=== PATIENT | female | born 1965 | race Caucasian/White ===

== ENCOUNTER 2019-06-01 15:46 | Emergency (ER) | payer MEDICAID ==
[~2019-06-01] VITALS: Ht 162.6 cm; Wt 61.0 kg
[2019-06-01] MEDS ORDERED: LISI40TA4 PO (15:56)
[2019-06-01] MEDS ORDERED: METO-396 PO (15:56)
[2019-06-01] MEDS ORDERED: FLUO20CA33 PO (15:56)
[2019-06-01] MEDS ORDERED: PROV100 PO (15:56)
[2019-06-01] MEDS ORDERED: ASPI-1393 PO (15:56)
[2019-06-01] MEDS ORDERED: METF-816 PO (15:56)
[2019-06-01] MEDS ORDERED: TERA10CA4 PO (15:56)
[2019-06-01] MEDS ORDERED: AMLO10TA80 PO (15:56)
[2019-06-01] MEDS ORDERED: ATOR10TA69 PO (15:56)
[2019-06-01] MEDS ORDERED: LEVETIRACETAM 500MG PREMIX 100 ML IV ONE (16:30)
[2019-06-01 17:21] LABS: BASOPHILS % 0.9 % (0.0-2.0); EOSINOPHILS % 2.1 % (0.0-5.0); HEMATOCRIT. 37.1 % (36.0-48.0); HEMOGLOBIN. 12.4 g/dL (12.0-16.0); LYMPHOCYTES % 16.5 % (20.0-50.0); MEAN CORPUSCULAR HEMOGLOBIN 28.7 pg (28.0-32.0); MEAN CORPUSCULAR VOLUME 85.4 fL (81.0-99.0); MEAN PLATELET VOLUME 8.4 fl (7.4-10.4); MONOCYTES % 7.1 % (2.0-8.0); NEUTROPHILS % 73.4 % (40.0-76.0); PLATELET 330 x1000/uL (130-400); RED BLOOD CELL COUNT 4.34 mill/uL (4.2-5.4); RED CELL DISTRIBUTION WIDTH 15.5 % (11.6-14.6)
[2019-06-01 17:23] LABS: PARTIAL THROMBOPLASTIN TIME 26.2 sec (23.4-31.0); PROTHROMBIN TIME 10.1 sec (9.6-11.0)
[2019-06-01 17:24] LABS: CHLORIDE 99 mEq/L (98-107)
[2019-06-01 17:41] LABS: CLARITY URINE CLEAR (CLEAR); COLOR URINE YELLOW (YELLOW); KETONES URINE NEGATIVE (NEGATIVE); LEUKOCYTE ESTERASE URINE 1+ (NEGATIVE); NITRITE URINE POSITIVE (NEGATIVE); OCCULT BLOOD URINE NEGATIVE (NEGATIVE); PH URINE 8.5 (4.5-8.0); PROTEIN URINE NEGATIVE (NEGATIVE); SPECIFIC GRAVITY URINE 1.015 (1.005-1.030)
[2019-06-01] MEDS ORDERED: CEFTRIAXONE 1 G PREMIX 50 ML IV ONE (18:00)
[2019-06-01 21:30] VITALS: BP 167/79
== END 2019-06-01 21:51 | disposition short-term general hospital (02) ==
LOC: ER 15:46
DX: N39.0 Urinary tract infection, site not specified (principal); E86.0 Dehydration; I10 Essential (primary) hypertension; E11.9 Type 2 diabetes mellitus without complications; I69.354 Hemiplegia and hemiparesis following cerebral infarction affecting left non-dominant side; Z79.82 Long term (current) use of aspirin; Z79.84 Long term (current) use of oral hypoglycemic drugs
CPT/HCPCS: 36415; 70450; 71045; 80053; 81003; 82962; 83880; 84484; 85025; 85610; 85730; 87077; 87086; 87186; 93005; 96365; 96367; 99285; J0696; J1953

== ENCOUNTER 2019-06-08 22:03 | Inpatient (IN) | payer MEDICAID ==
[~2019-06-08] VITALS: Ht 157.5 cm; Wt 68.6 kg
[~2019-06-08 22:03] MED LIST: AMLO10TA80 PO; ASPI-1393 PO; ATOR10TA69 PO; FLUO20CA33 PO; LISI40TA4 PO; METF-816 PO; METO-396 PO; PROV100 PO; TERA10CA4 PO
[2019-06-08 23:05] LABS: BASOPHILS % 0.7 % (0.0-2.0); EOSINOPHILS % 1.9 % (0.0-5.0); HEMATOCRIT. 30.3 % (36.0-48.0); HEMOGLOBIN. 10.1 g/dL (12.0-16.0); LYMPHOCYTES % 15.2 % (20.0-50.0); MEAN CORPUSCULAR HEMOGLOBIN 28.2 pg (28.0-32.0); MEAN CORPUSCULAR VOLUME 84.5 fL (81.0-99.0); MONOCYTES % 9.1 % (2.0-8.0); NEUTROPHILS % 73.1 % (40.0-76.0); PLATELET 290 x1000/uL (130-400); RED BLOOD CELL COUNT 3.59 mill/uL (4.2-5.4); RED CELL DISTRIBUTION WIDTH 15.3 % (11.6-14.6)
[2019-06-08 23:17] LABS: CHLORIDE 105 mEq/L (98-107)
[2019-06-08 23:19] LABS: *AMPHETAMINES SCREEN URINE NEGATIVE (NEGATIVE); *BARBITURATES SCREEN URINE NEGATIVE (NEGATIVE); *BENZODIAZEPINES SCREEN URINE NEGATIVE (NEGATIVE); CLARITY URINE CLOUDY (CLEAR); COLOR URINE YELLOW (YELLOW); KETONES URINE NEGATIVE (NEGATIVE); LEUKOCYTE ESTERASE URINE 1+ (NEGATIVE); NITRITE URINE NEGATIVE (NEGATIVE); OCCULT BLOOD URINE NEGATIVE (NEGATIVE); PH URINE 8.5 (4.5-8.0); PROTEIN URINE NEGATIVE (NEGATIVE); SPECIFIC GRAVITY URINE 1.015 (1.005-1.030); UROBILINOGEN URINE 0.2 E.U./dL (0.2-1.0)
[2019-06-08 23:20] LABS: *COCAINE SCREEN URINE NEGATIVE (NEGATIVE); CANNABINOID URINE SCREEN NEGATIVE (NEGATIVE); METHADONE URINE SCREEN NEGATIVE (NEGATIVE); OPIATES URINE SCREEN NEGATIVE (NEGATIVE); PHENCYCLIDINE URINE SCREEN NEGATIVE (NEGATIVE)
[2019-06-08 23:20] LABS: ETHANOL BLOOD < 10 mg/dL
[2019-06-08] MEDS ORDERED: CEFTRIAXONE 1 G PREMIX 50 ML IV SCH (23:45)
[2019-06-08] MEDS ORDERED: LEVOTHYROXINE SODIUM 50MCG TABLET PO SCH (23:45)
[2019-06-09] MEDS ORDERED: AMLODIPINE 10MG TABLET PO ONE (00:45)
[2019-06-09] MEDS ORDERED: CEFTRIAXONE 1 G PREMIX 50 ML IV ONE (01:45)
[2019-06-09] MEDS: DEXT 5%/0.45% NACL KCL 20MEQ/L 1,000 ML IV SCH ×2 (02:54→17:55)
[2019-06-09] MEDS ORDERED: CLONIDINE HCL 0.1MG/24HR PATCH TD SCH (03:00)
[2019-06-09] MEDS ORDERED: MORPHINE SULFATE 2 MG/ML CPJ (NOT FOR IM USE) IV PRN (03:15)
[2019-06-09] MEDS ORDERED: LORAZEPAM 2MG/ML CPJ ONE (05:22)
[2019-06-09] MEDS ORDERED: LEVETIRACETAM 500MG PREMIX 100 ML IV ONE (05:30)
[2019-06-09] MEDS ORDERED: LORAZEPAM 2MG/ML CPJ IV ONE (05:30)
[2019-06-09 09:36] VITALS: BP 171/74
[2019-06-09 09:42] VITALS: BP 171/74
[2019-06-09] MEDS ORDERED: METO25TA6 PO (09:54)
[2019-06-09] MEDS ORDERED: MULT-1116 MT (09:54)
[2019-06-09] MEDS ORDERED: METF-415 PO (09:54)
[2019-06-09] MEDS: PANTOPRAZOLE SODIUM 40 MG/VIAL IV SCH (09:55)
[2019-06-09] MEDS: ENALAPRIL 2.5MG/2ML VIAL 2ML IV PRN (09:56)
[2019-06-09] MEDS: ENOXAPARIN 40MG/0.4ML SYR SUBCUT SCH (09:57)
[2019-06-09 11:14] LABS: CHLORIDE 107 mEq/L (98-107)
[2019-06-09 11:21] LABS: LDL CHOLESTEROL 41 mg/dL (5-100)
[2019-06-09 11:23] LABS: HDL CHOLESTEROL 56 mg/dL (40-59)
[2019-06-09] MEDS ORDERED: DEXTROSE 50% WATER 50ML SYRINGE IV PRN ×2 (11:30)
[2019-06-09] MEDS ORDERED: LORAZEPAM 2MG/ML CPJ IV PRN (11:30)
[2019-06-09 12:00] VITALS: BP 169/76
[2019-06-09] MEDS ORDERED: LISINOPRIL 20MG TABLET PEG SCH (12:30)
[2019-06-09] MEDS: INSULIN LISPRO 100 UNITS/ML SUBCUT SCH ×3 (12:40→20:54)
[2019-06-09] MEDS: BLOOD SUGAR DIAGNOSTIC STRIP TEST SCH ×3 (12:54→20:53)
[2019-06-09] MEDS: MICONAZOLE NITRATE 2% OINT 71GM TOP SCH ×2 (15:34→21:20)
[2019-06-09 16:00] VITALS: BP 148/75
[2019-06-09] MEDS ORDERED: INFLUENZA VIRUS VACCINE(AFLURIA) 0.5ML SYR IM ONE (17:15)
[2019-06-09 20:00] VITALS: BP 179/76
[2019-06-09] MEDS ORDERED: ACETAMINOPHEN 325MG TABLET PO PRN (20:15)
[2019-06-09] MEDS: LEVETIRACETAM 500MG TABLET PEG SCH (21:19)
[2019-06-09] MEDS: METOPROLOL TARTRATE 50MG TABLET PEG SCH (21:20)
[2019-06-10] VITALS: BP 160/62
[2019-06-10 04:00] VITALS: BP 171/76
[2019-06-10] MEDS: DEXT 5%/0.45% NACL KCL 20MEQ/L 1,000 ML IV SCH (05:36)
[2019-06-10] MEDS: ENALAPRIL 2.5MG/2ML VIAL 2ML IV PRN (05:38)
[2019-06-10] MEDS: INSULIN LISPRO 100 UNITS/ML SUBCUT SCH ×4 (05:59→21:00)
[2019-06-10] MEDS: BLOOD SUGAR DIAGNOSTIC STRIP TEST SCH ×4 (05:59→21:12)
[2019-06-10 06:44] LABS: BASOPHILS % 0.8 % (0.0-2.0); HEMATOCRIT. 31.1 % (36.0-48.0); HEMOGLOBIN. 10.4 g/dL (12.0-16.0); MEAN CORPUSCULAR HEMOGLOBIN 28.5 pg (28.0-32.0); MEAN CORPUSCULAR VOLUME 84.7 fL (81.0-99.0); MEAN PLATELET VOLUME 8.1 fl (7.4-10.4); MONOCYTES % 9.9 % (2.0-8.0); NEUTROPHILS % 63.3 % (40.0-76.0); PLATELET 298 x1000/uL (130-400); RED BLOOD CELL COUNT 3.67 mill/uL (4.2-5.4); RED CELL DISTRIBUTION WIDTH 15.3 % (11.6-14.6)
[2019-06-10 06:59] LABS: CHLORIDE 109 mEq/L (98-107)
[2019-06-10 07:08] LABS: LDL CHOLESTEROL 43 mg/dL (5-100)
[2019-06-10 07:11] LABS: HDL CHOLESTEROL 51 mg/dL (40-59)
[2019-06-10 08:00] VITALS: BP 175/78
[2019-06-10] MEDS: METOPROLOL TARTRATE 50MG TABLET PEG SCH ×2 (08:55→21:17)
[2019-06-10] MEDS: AMLODIPINE 10MG TABLET PEG SCH (08:55)
[2019-06-10] MEDS: LISINOPRIL 20MG TABLET PEG SCH (08:56)
[2019-06-10] MEDS: PANTOPRAZOLE SODIUM 40 MG/VIAL IV SCH (08:57)
[2019-06-10] MEDS: LEVETIRACETAM 500MG TABLET PEG SCH ×2 (08:57→21:18)
[2019-06-10] MEDS: ENOXAPARIN 40MG/0.4ML SYR SUBCUT SCH (08:58)
[2019-06-10] MEDS: MICONAZOLE NITRATE 2% OINT 71GM TOP SCH ×2 (09:00→21:18)
[2019-06-10 16:00] VITALS: BP 169/86
[2019-06-10 18:00] VITALS: BP 150/68
[2019-06-10 20:00] VITALS: BP 177/78
[2019-06-10] MEDS ORDERED: TERAZOSIN HCL 5MG CAPSULE PO SCH (21:00)
[2019-06-10] MEDS: HYDRALAZINE HCL 50MG TABLET PO SCH (21:18)
[2019-06-10] MEDS: FAMOTIDINE 20MG TABLET PEG SCH (21:18)
[2019-06-11] VITALS: BP 135/58
[2019-06-11 04:00] VITALS: BP 154/63
[2019-06-11] MEDS: HYDRALAZINE HCL 50MG TABLET PO SCH ×2 (05:25→14:00)
[2019-06-11] MEDS: INSULIN LISPRO 100 UNITS/ML SUBCUT SCH ×2 (05:43→13:11)
[2019-06-11] MEDS: BLOOD SUGAR DIAGNOSTIC STRIP TEST SCH ×2 (05:43→12:49)
[2019-06-11 08:00] VITALS: BP 132/59
[2019-06-11] MEDS: LEVETIRACETAM 500MG TABLET PEG SCH (09:46)
[2019-06-11] MEDS: AMLODIPINE 10MG TABLET PEG SCH (09:46)
[2019-06-11] MEDS: FAMOTIDINE 20MG TABLET PEG SCH (09:46)
[2019-06-11] MEDS: LISINOPRIL 20MG TABLET PEG SCH (09:47)
[2019-06-11] MEDS: METOPROLOL TARTRATE 50MG TABLET PEG SCH (09:47)
[2019-06-11] MEDS: ENOXAPARIN 40MG/0.4ML SYR SUBCUT SCH (09:47)
[2019-06-11] MEDS: MICONAZOLE NITRATE 2% OINT 71GM TOP SCH (10:06)
[2019-06-11 11:53] VITALS: BP 141/64
[2019-06-11 12:00] VITALS: BP 141/64
== END 2019-06-11 14:01 | disposition home health service (06) | DRG 53 ==
LOC: ER 22:14 → 8WST 22:15 → ENRESERV 06-09 07:18
PROVIDERS: ADMIT Internal Medicine Critical Care Medicine; ATTEND Internal Medicine Critical Care Medicine
DX: G40.909 Epilepsy, unspecified, not intractable, without status epilepticus (principal); I69.954 Hemiplegia and hemiparesis following unspecified cerebrovascular disease affecting left non-dominant side; Z93.1 Gastrostomy status; E03.9 Hypothyroidism, unspecified; E11.9 Type 2 diabetes mellitus without complications; B36.9 Superficial mycosis, unspecified; E05.90 Thyrotoxicosis, unspecified without thyrotoxic crisis or storm; L30.4 Erythema intertrigo; N39.0 Urinary tract infection, site not specified; I10 Essential (primary) hypertension; Z82.49 Family history of ischemic heart disease and other diseases of the circulatory system; Z79.82 Long term (current) use of aspirin; Z79.84 Long term (current) use of oral hypoglycemic drugs
CPT/HCPCS: 36415; 80048; 80061; 80305; 80320; 81003; 82140; 82962; 83036; 83605; 84439; 84443; 92610; 96365; 96366; 96375; 99291; C9113; J0696; J1650; J1815; J1953; J2060; J2270; J3490; A4315; G0480